=== PATIENT | male | born 1960 | race Caucasian/White ===

== ENCOUNTER → 2020-01-30 | Outpatient (CLI) | payer BC, OTHER ==
[~2020-01-30] MED LIST: ASPIR 8181 MG PO; FENOFIBRATE145 MG PO; FERROUS FUMARA324 MG PO; FUROSEMIDE40 MG PO; LOSARTAN-HCTZ1 EAC1 PO; VITAMIN D3250 MCG PO
== END | disposition home or self-care (01) ==
LOC: RAD 05:00 → OR 02-02 06:50 → EDBD 02-02 10:30 → EDSTATUS 02-02 10:30
PROVIDERS: ATTEND Internal Medicine Gastroenterology
DX: Z09 Encounter for follow-up examination after completed treatment for conditions other than malignant neoplasm (principal); Z01.810 Encounter for preprocedural cardiovascular examination; Z01.812 Encounter for preprocedural laboratory examination; Z11.59 Encounter for screening for other viral diseases; Z68.42 Body mass index [BMI] 45.0-49.9, adult; Z53.8 Procedure and treatment not carried out for other reasons
CPT/HCPCS: 87635; 93005